=== PATIENT | female | born 1995 | race African-American/Black ===

== ENCOUNTER 2016-10-08 23:59 | Emergency (ER) | payer SELFPAY ==
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
== END 2016-10-09 01:10 | disposition home or self-care (01) ==
LOC: CED 23:59
DX: S16.1XXA Strain of muscle, fascia and tendon at neck level, initial encounter (principal); S60.221A Contusion of right hand, initial encounter; F17.210 Nicotine dependence, cigarettes, uncomplicated; V49.50XA Passenger injured in collision with unspecified motor vehicles in traffic accident, initial encounter; Y92.488 Other paved roadways as the place of occurrence of the external cause
CPT/HCPCS: 72040; 73130; 99284

== ENCOUNTER → 2017-01-04 | Outpatient (CLI) | payer OTHER ==
--- NOTE | ~2017-01-04 | CT2 ---
[facility] A Service of [facility] RADIOLOGY TEXT RESULTS PATIENT: ALINE FREEMAN LOCATION: [facility] : [birth year] UNIT #: [id number] AGE: [address]: EDIS FAJARDO APRN SEX: F ORDER DR: [id number] [facility] [address]. [place], [place] [address] [id number] O MR#: [id number] Acc #: [id number] NAME: ALINE FREEMAN : 1995 SEX: F STUDY DATE/TIME: 01/04/2017 15:45 UNIT: [facility] ROOM: STUDY DESCRIPTION: CT Abd and Pelv W Cont Attending Physician: Edis Fajardo Aprn Referring Physician: Edis Fajardo Aprn Ordering Physician: Staff Doctor Not On Primary Care Physician: No Primary Care Physician MEDICAL IMAGING REPORT This report is preliminary unless electronic signature is present EXAM CT of abdomen and pelvis, 01/04. INDICATIONS Right lower quadrant pain with nausea and diarrhea. Symptoms started today. TECHNIQUE Axial images were obtained through the abdomen and pelvis following oral and IV contrast administration. Multiplanar reformats were obtained. COMPARISON No comparison. This CT exam was performed with one or more of the following radiation dose reduction techniques: automatic exposure control, adjustment of mA and/or kV according to patient size, and iterative reconstruction. FINDINGS ABDOMEN: The lung bases are clear. Gallbladder is normal. There is no biliary obstruction. There is a small subcentimeter cyst or hemangioma in the right lobe of the liver in segment 8 measuring about 6 mm in size. Solid organs are otherwise normal. No adenopathy or free fluid. GI tract is normal. PELVIS: The appendix is normal. The remainder of the GI tract is normal as well. Urinary bladder is normal. Solid pelvic organs are normal. IMPRESSION 1. Negative CT of the abdomen and pelvis. 2. Normal GI tract, including the appendix. [facility] A Service of [facility] RADIOLOGY TEXT RESULTS PATIENT: ALINE FREEMAN [facility] : [birth year] UNIT #: [id number] AGE: [address]: EDIS FAJARDO APRN SEX: F ORDER DR: Dictated by... Mihai Carter Jr., M.D. THIS IS AN ELECTRONICALLY VERIFIED REPORT Mihai Carter Jr., M.D. at 01/07/2017 5:54 AM CHANO/aquiles TD: 01/04/2017 23:02 JOB #: [id number] MEDICAL IMAGING REPORT Page 1 of 1 COPY
== END | disposition home or self-care (01) ==
LOC: CCAT 13:23
DX: R10.31 Right lower quadrant pain (principal)
CPT/HCPCS: 74177; Q9967